=== PATIENT | male | born 1955 | race Caucasian/White ===

== ENCOUNTER 2017-04-24 16:46 | Inpatient (IN) | payer OTHER ==
[~2017-04-24] VITALS: Ht 182.9 cm; Wt 88.5 kg
[2017-04-24 17:29] LABS: HEMOGLOBIN 18.8 gm/dl (14.0-17.5); RED BLOOD COUNT 5.78 M/UL (4.20-5.50); WHITE BLOOD COUNT 9.4 K/UL (4.5-11.0)
[2017-04-24 17:54] LABS: BUN/CREATININE RATIO 10 (0-10)
[2017-04-25 05:39] LABS: HEMOGLOBIN 16.9 gm/dl (14.0-17.5); RED BLOOD COUNT 5.25 M/UL (4.20-5.50); WHITE BLOOD COUNT 10.1 K/UL (4.5-11.0)
[2017-04-25 05:51] LABS: BUN/CREATININE RATIO 10 (0-10)
[2017-04-25] MEDS ORDERED: ASPIR 8181 MG PO (20:55)
[2017-04-25] MEDS ORDERED: OMEPRAZOLE20 MG PO (21:01)
[2017-04-26] MEDS ORDERED: TENORMIN 25 MG25 MG PO (13:50)
[2017-04-26] MEDS ORDERED: XARELTO20 MG PO (13:51)
[2017-04-26] MEDS ORDERED: COMBIVENT0.074 GM/I INH (13:52)
[2017-04-26] MEDS ORDERED: MEDROL4 MG PO (13:53)
[2017-04-26] MEDS ORDERED: CARDIZEM LA360 MG PO (13:55)
== END 2017-04-26 12:42 | disposition home or self-care (01) | DRG 291 ==
LOC: ER1 16:46 → M/S 19:25 → ZEROF 19:25 → M/S 04-25 18:54
PROVIDERS: Emergency Medicine; ADMIT Internal Medicine
DX: I50.23 Acute on chronic systolic (congestive) heart failure (principal); J96.01 Acute respiratory failure with hypoxia; I48.91 Unspecified atrial fibrillation; I10 Essential (primary) hypertension; F17.210 Nicotine dependence, cigarettes, uncomplicated; J44.9 Chronic obstructive pulmonary disease, unspecified; G47.30 Sleep apnea, unspecified; F10.10 Alcohol abuse, uncomplicated; D75.1 Secondary polycythemia; Z88.5 Allergy status to narcotic agent; Z82.49 Family history of ischemic heart disease and other diseases of the circulatory system; Z82.3 Family history of stroke; Z84.89 Family history of other specified conditions
CPT/HCPCS: ECHO; 36415; 36600; 71010; 71250; 80048; 80053; 80061; 82550; 82553; 82803; 83735; 83874; 83880; 84443; 84484; 85025; 93005; 93306; 94640; 94664; 96372; 96374; 96376; 99291; J1650; J1940; J2250; J7030